=== PATIENT | female | born 2000 | race Caucasian/White ===

== ENCOUNTER 2021-01-30 03:03 | Emergency (ER) | payer MEDICAID ==
[~2021-01-30] VITALS: Ht 175.3 cm; Wt 74.8 kg
[2021-01-30] MEDS ORDERED: levETIRAcetam 500 MG/5ML INJ IV ONE (03:48)
[2021-01-30] MEDS ORDERED: SODIUM CHLORIDE 0.9% 1,000 ML IV ONE (04:00)
[2021-01-30] MEDS ORDERED: diazePAM 5 MG TAB PO ONE (04:00)
[2021-01-30] MEDS ORDERED: SODIUM CHLORIDE 0.9% 1,000 ML IVB ONE (04:00)
[2021-01-30 04:05] LABS: Basophils # (auto) 0.1 10 ^3/uL (0-0.2); Basophils % (auto) 0.7 % (0.0-2.0); Eosinophils # (auto) 0.4 10 ^3/uL (0-0.8); Eosinophils % (auto) 2.8 % (0.0-7.0); Hemoglobin 13.6 g/dL (12.2-16.2); Lymphocytes # (auto) 2.1 10 ^3/uL (0.4-5.4); Lymphocytes % (auto) 16.2 % (10.0-50.0); Mean Corpuscular Volume 88.6 fL (80.0-100.0); Monocytes # (auto) 0.8 10 ^3/uL (0-1.3); Monocytes % (auto) 6.6 % (0.0-12.0); Neutrophils # (auto) 9.4 10 ^3/uL (1.6-8.6); Neutrophils % (auto) 73.7 % (37.0-80.0); Nucleated Red Blood Cells % 0.1 %; Platelet Count (auto) 357 10^3/uL (140-450); Red Cell Distribution Width 12.6 % (11.8-14.3); White Blood Cell 12.7 10^3/uL (4.4-10.8)
[2021-01-30 04:24] LABS: Albumin 3.7 g/dL (3.4-5.0); Calcium 8.5 mg/dL (8.5-10.1); Magnesium 2.2 mg/dL (1.6-2.6); Potassium 3.6 mmol/L (3.5-5.1)
[2021-01-30 04:27] LABS: BUN/Creatinine Ratio 12.1; Bilirubin, Total 0.2 mg/dL (0.2-1.0); Total Protein 7.5 g/dL (6.4-8.2)
[2021-01-30 05:00] VITALS: BP 121/51
== END 2021-01-30 06:13 | disposition home or self-care (01) ==
LOC: EDBD 03:03 → ER 03:09
DX: G40.909 Epilepsy, unspecified, not intractable, without status epilepticus (principal)
CPT/HCPCS: 36415; 80053; 83735; 85025; 93005; 96365; 99285; J1953; J7060; 96360

== ENCOUNTER 2021-02-28 15:09 | Emergency (ER) | payer MEDICAID ==
[~2021-02-28] VITALS: Ht 175.3 cm; Wt 72.6 kg
[2021-02-28 15:16] VITALS: BP 137/80
[2021-02-28] MEDS ORDERED: ONDANSETRON ODT 4 MG TAB PO ONE (17:15)
[2021-02-28] MEDS ORDERED: KETOROLAC TROMETH 60MG/2ML VIAL IM ONE (17:15)
== END 2021-02-28 17:55 | disposition home or self-care (01) ==
LOC: ER 15:09
DX: G43.909 Migraine, unspecified, not intractable, without status migrainosus (principal); Q04.8 Other specified congenital malformations of brain; F41.9 Anxiety disorder, unspecified
CPT/HCPCS: 70450; 96372; 99284; J1885; Q0162

== ENCOUNTER 2022-05-04 14:39 | Emergency (ER) | payer MEDICAID ==
[~2022-05-04] VITALS: Ht 175.3 cm; Wt 70.8 kg
[2022-05-04 14:45] VITALS: BP 123/95
[2022-05-04] MEDS ORDERED: KETOROLAC TROMETH 60MG/2ML VIAL IM ONE (16:00)
[2022-05-04] MEDS ORDERED: ONDANSETRON ODT 4 MG TAB PO ONE (16:00)
[2022-05-04] MEDS ORDERED: SUMA50TA2 PO (16:21)
[2022-05-04] MEDS ORDERED: ONDA-144 PO (16:21)
== END 2022-05-04 16:33 | disposition home or self-care (01) ==
LOC: ER 14:39
DX: G43.909 Migraine, unspecified, not intractable, without status migrainosus (principal)
CPT/HCPCS: 96372; 99283; J1885; Q0162

== ENCOUNTER 2022-10-02 00:13 | Emergency (ER) | payer MEDICAID ==
[~2022-10-02] VITALS: Ht 175.3 cm; Wt 162.0 kg
[~2022-10-02 00:13] MED LIST: ONDA-144 PO; SUMA50TA2 PO
[2022-10-02] MEDS ORDERED: HYDROcodone-ACET 5/325MG TAB PO ONE (00:45)
[2022-10-02 01:39] LABS: Urine Amorphous Crystal FEW /hpf (None Seen); Urine Bacteria NONE SEEN /hpf (None Seen); Urine Blood TRACE /uL (Negative); Urine Mucus FEW (None Seen); Urine Specific Gravity 1.019 (1.001-1.035); Urine WBC 3 /hpf (0 - 5)
[2022-10-02] MEDS ORDERED: CIPR-173 PO (05:15)
[2022-10-02] MEDS ORDERED: CIPROFLOXACIN HCL 500 MG TAB PO ONE (05:15)
[2022-10-02] MEDS ORDERED: PERCOT PO (05:15)
[2022-10-02] MEDS ORDERED: ONDA-144 PO (05:15)
[2022-10-02 05:46] VITALS: BP 139/73
== END 2022-10-02 05:17 | disposition home or self-care (01) ==
LOC: ER 00:13
DX: K29.70 Gastritis, unspecified, without bleeding (principal)
CPT/HCPCS: 74176; 81001

== ENCOUNTER 2022-12-14 06:03 | Emergency (ER) | payer MEDICAID ==
[~2022-12-14] VITALS: Ht 175.3 cm; Wt 76.2 kg
[~2022-12-14 06:03] MED LIST changes: +CIPR-173 PO; +PERCOT PO
[2022-12-14 06:29] VITALS: BP 139/81
[2022-12-14] MEDS ORDERED: TETRACAINE HCL 0.5% OPTH(EYE) SOLN 4ML EACHEYE ONE (06:30)
[2022-12-14] MEDS ORDERED: HYDROcodone-ACET 5/325MG TAB PO ONE (06:30)
[2022-12-14] MEDS ORDERED: TETRACAINE HCL 0.5% OPTH(EYE) SOLN 4ML ONE (06:36)
[2022-12-14] MEDS ORDERED: AUG875T PO (06:55)
== END 2022-12-14 07:11 | disposition home or self-care (01) ==
LOC: ER 06:03
DX: H66.92 Otitis media, unspecified, left ear (principal)

== ENCOUNTER 2022-12-26 09:35 | Emergency (ER) | payer MEDICAID ==
[~2022-12-26] VITALS: Ht 175.3 cm; Wt 74.4 kg
[~2022-12-26 09:35] MED LIST changes: +AUG875T PO
[2022-12-26 11:17] VITALS: BP 136/74
[2022-12-26] MEDS ORDERED: KETOROLAC TROMETH 60MG/2ML VIAL IM ONE (11:45)
[2022-12-26] MEDS ORDERED: cefTRIAXone SOD 1,000 MG VL IM ONE (11:45)
[2022-12-26] MEDS ORDERED: CIPR-173 PO (12:54)
[2022-12-26] MEDS ORDERED: PRED20TA2 PO (12:54)
== END 2022-12-26 12:56 | disposition home or self-care (01) ==
LOC: ER 09:35
DX: H66.92 Otitis media, unspecified, left ear (principal); J03.90 Acute tonsillitis, unspecified; R51.9 Headache, unspecified; Z79.2 Long term (current) use of antibiotics; Z79.899 Other long term (current) drug therapy; Z88.8 Allergy status to other drugs, medicaments and biological substances
CPT/HCPCS: 70450; 96372; 99285; J0696; J1885

== ENCOUNTER 2023-05-16 00:05 | Emergency (ER) | payer MEDICAID ==
[~2023-05-16] VITALS: Ht 175.3 cm; Wt 74.5 kg
[~2023-05-16 00:05] MED LIST changes: +PRED20TA2 PO
[2023-05-16 01:34] LABS: Urine Amorphous Crystal MOD /hpf (None Seen); Urine Bacteria NONE SEEN /hpf (None Seen); Urine Blood Negative /uL (Negative); Urine Mucus FEW (None Seen); Urine WBC 10 /hpf (0 - 5)
[2023-05-16 01:54] LABS: Basophils # (auto) 0.1 10 ^3/uL (0-0.2); Basophils % (auto) 0.5 % (0.0-2.0); Eosinophils # (auto) 0.2 10 ^3/uL (0-0.8); Eosinophils % (auto) 1.5 % (0.0-7.0); Hematocrit 40.5 % (36.0-46.0); Hemoglobin 14.2 g/dL (12.2-16.2); Lymphocytes # (auto) 1.7 10 ^3/uL (0.4-5.4); Lymphocytes % (auto) 12.3 % (10.0-50.0); Mean Corpuscular Hemoglobin 31.3 pg (28.0-32.0); Mean Corpuscular Hgb Conc. 35.1 g/dL (32.0-36.0); Mean Corpuscular Volume 89.2 fL (80.0-100.0); Monocytes # (auto) 0.8 10 ^3/uL (0-1.3); Monocytes % (auto) 5.6 % (0.0-12.0); Neutrophils # (auto) 11.1 10 ^3/uL (1.6-8.6); Neutrophils % (auto) 80.1 % (37.0-80.0); Nucleated Red Blood Cells % 0.1 %; Red Blood Cells 4.54 10^6/uL (4.0-5.20); Red Cell Distribution Width 12.8 % (11.8-14.3); White Blood Cell 13.8 10^3/uL (4.4-10.8)
[2023-05-16 02:36] LABS: Potassium 3.9 mmol/L (3.5-5.1)
[2023-05-16 02:37] LABS: Albumin 4.3 g/dL (3.4-5.0); BUN/Creatinine Ratio 15.3 (10.0-20.0); Bilirubin, Total 0.3 mg/dL (0.2-1.0); Calcium 9.3 mg/dL (8.5-10.1); Magnesium 2.6 mg/dL (1.6-2.6); Total Protein 7.4 g/dL (6.4-8.2)
[2023-05-16] MEDS ORDERED: diphenhdrAMINE HCL 50 MG/1 ML VL IV ONE (03:30)
[2023-05-16] MEDS ORDERED: METOCLOPRAMIDE HCL 10 MG TAB PO ONE (03:30)
[2023-05-16] MEDS ORDERED: ACETAMINOPHEN 325 MG TAB PO ONE (03:30)
[2023-05-16] MEDS ORDERED: IBUPROFEN 400 MG TAB PO ONE (03:30)
[2023-05-16] MEDS ORDERED: SODIUM CHLORIDE 0.9% 1,000 ML IV ONE (03:30)
[2023-05-16] MEDS ORDERED: DexAMETHasone 4 MG TAB PO ONE (03:30)
[2023-05-16 06:00] VITALS: BP 124/89
[2023-05-16] MEDS ORDERED: DexAMETHasone SOD PHOS 10MG/1ML VIAL INJ IV ONE (06:00)
[2023-05-16] MEDS ORDERED: DIPH25CA66 PO (06:34)
[2023-05-16] MEDS ORDERED: METO-281 PO (06:34)
== END 2023-05-16 06:47 | disposition home or self-care (01) ==
LOC: ER 00:05
DX: G43.909 Migraine, unspecified, not intractable, without status migrainosus (principal); R42 Dizziness and giddiness; J45.909 Unspecified asthma, uncomplicated; Z79.899 Other long term (current) drug therapy
CPT/HCPCS: 36415; 70450; 71045; 80053; 81001; 83735; 84484; 85025; 93005; 96361; 96374; 96375; 99285; J1100; J1200; J7030